=== PATIENT | female | born 2000 | race Caucasian/White ===

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

== ENCOUNTER 2022-05-13 16:26 | Emergency (ER) | payer OTHER ==
[~2022-05-13] VITALS: Ht 175.3 cm; Wt 59.0 kg
[2022-05-13] MEDS ORDERED: LAYOLIS FE CHE1 EACH PO (17:13)
[2022-05-13] MEDS ORDERED: DICLOFENAC SODI75 MG PO (18:23)
== END 2022-05-13 19:27 | disposition home or self-care (01) ==
LOC: ER 16:26
DX: S99.822A Other specified injuries of left foot, initial encounter (principal); S90.122A Contusion of left lesser toe(s) without damage to nail, initial encounter; X58.XXXA Exposure to other specified factors, initial encounter; Y93.9 Activity, unspecified; Y92.9 Unspecified place or not applicable